=== PATIENT | male | born 1950 | race Asian ===

== ENCOUNTER 2021-01-23 10:35 | Day surgery (SDC) | payer OTHER ==
[~2021-01-23] VITALS: Ht 170.2 cm; Wt 59.0 kg
[2021-01-23] MEDS ORDERED: fentaNYL citrate 0.05 MG/ML VIAL ONE (12:28)
[2021-01-23] MEDS ORDERED: MIDAZOLAM 5 MG/5 ML VIAL ONE (12:28)
[2021-01-23] MEDS ORDERED: MIDAZOLAM 2 MG/2 ML VIAL IVP ONE (12:50)
== END 2021-01-23 13:35 | disposition home or self-care (01) ==
LOC: MDS 10:35 → MMU 10:35 → MDS 13:35
PROVIDERS: ATTEND Internal Medicine Gastroenterology
DX: R13.10 Dysphagia, unspecified (principal); R63.4 Abnormal weight loss; K21.9 Gastro-esophageal reflux disease without esophagitis; Z87.891 Personal history of nicotine dependence; Z79.82 Long term (current) use of aspirin; Z79.899 Other long term (current) drug therapy
CPT/HCPCS: 36415; 43239; 86677; J2250; J3010